=== PATIENT | female | born 1995 | race Caucasian/White ===

== ENCOUNTER 2016-10-07 20:07 | Emergency (ER) | payer MEDICAID ==
[2016-10-07 21:40] VITALS: BP 145/75
== END 2016-10-07 21:40 | disposition home or self-care (01) ==
LOC: ED 20:07
DX: J45.901 Unspecified asthma with (acute) exacerbation (principal)
CPT/HCPCS: J7512; J7613; J7644

== ENCOUNTER 2016-11-11 21:48 | Emergency (ER) | payer MEDICAID | END 2016-11-12 01:16 | disposition left against medical advice (07) | LOC: ED 21:48 | DX: Z53.21 Procedure and treatment not carried out due to patient leaving prior to being seen by health care provider (principal) ==

== ENCOUNTER 2016-11-18 06:40 | Emergency (ER) | payer MEDICAID ==
[2016-11-18 08:17] VITALS: BP 118/70
== END 2016-11-18 08:17 | disposition home or self-care (01) ==
LOC: ED 06:40
DX: J45.901 Unspecified asthma with (acute) exacerbation (principal); Z79.51 Long term (current) use of inhaled steroids
CPT/HCPCS: J1100; J7620

== ENCOUNTER 2016-12-12 16:36 | Emergency (ER) | payer MEDICAID ==
[~2016-12-12] VITALS: Ht 172.7 cm; Wt 91.2 kg
[2016-12-12 17:43] VITALS: BP 128/76
== END 2016-12-12 17:43 | disposition home or self-care (01) ==
LOC: ED 16:36
DX: J45.901 Unspecified asthma with (acute) exacerbation (principal)
CPT/HCPCS: J7512